=== PATIENT | male | born 1955 | race Caucasian/White ===

== ENCOUNTER → 2018-08-08 | Outpatient (CLI) | payer MEDICARE ==
[2018-08-08 12:32] LABS: HCT 44.8 % (39.0-53.0); HGB 14.3 gm/dL (13.0-17.5); MCH 30.9 pg (25.0-35.0); MCHC 31.9 g/dL (31.0-37.0); MCV 96.9 fL (80.0-100.0); Mean Platelet Volume 6.1; Platelet Count 246 k/uL (150-450); RBC 4.62 m/uL (4.30-5.90)
[2018-08-08 14:52] LABS: Appearance,Urine Clear (Clear); Bilirubin,Urine Negative (Negative); Blood,Urine Negative (Negative); Color,Urine Light Yellow; Glucose,Urine (UA) Negative (Negative); Ketones,Urine Negative (Negative); Leukocyte Esterase,Urine Negative (Negative); Nitrite,Urine Negative (Negative); PH, Urine 5.5 (5.0-8.0); Protein,Urine Negative (Negative); Specific Gravity,Urine 1.009 (1.001-1.035); Urobilinogen,Urine <2.0 mg/dL (<2.0)
[2018-08-08 18:28] LABS: Albumin 4.4 g/dL (3.80-4.90); Albumin/Globulin Ratio 1.91 (1.20-2.10); Anion Gap 10.2 mmol/L (4.00-12.00); Calcium 9.5 mg/dL (8.7-10.3); Carbon Dioxide 28.8 mmol/L (21.6-31.8); Globulin 2.3 g/dL (1.6-3.3); LDL Cholesterol,Calculated 51.4 mg/dL (0.0-131.0); Potassium 4.4 mmol/L (3.5-5.5); Total Bilirubin 0.7 mg/dL (0.3-1.2); Total Protein 6.7 g/dL (6.2-8.2); VLDL Calculation 10.6 mg/dL (5.00-40.00)
[2018-08-08 19:19] LABS: Hemoglobin A1C 5.1 % (4.0-6.0)
== END ==
LOC: LABWHC1 12:04
PROVIDERS: ATTEND Family Medicine
DX: Z00.00 Encounter for general adult medical examination without abnormal findings (principal); I10 Essential (primary) hypertension
CPT/HCPCS: 36415; 80053; 80061; 81003; 83036; 84153; 84439; 84443; 85027

== ENCOUNTER → 2018-09-06 | Outpatient (CLI) | payer MEDICARE ==
--- NOTE | 2018-09-06 13:27 | XR ---
Abdomen HISTORY: Nausea, R 10.9 Frontal view of the abdomen submitted on 2 images No comparisons There is a spinal curvature, degenerative disc changes in the visualized spine. Lung bases are clear. No evident bowel obstruction or pneumoperitoneum. No pathologic calcification. Retained fecal debris throughout the distribution of much: Is noted. IMPRESSION: Scoliosis, degenerative disc disease. Correlate for possible fecal stasis.
== END | disposition home or self-care (01) ==
LOC: RADXRMAIN 12:52
PROVIDERS: ATTEND Family Medicine
DX: R10.9 Unspecified abdominal pain (principal)
CPT/HCPCS: 74018

== ENCOUNTER 2018-11-03 07:28 | Day surgery (SDC) | payer MEDICARE ==
[2018-10-30 13:39] VITALS: BMI 26.6
[~2018-11-03 07:28] MED LIST: LACTATED RINGERS 1,000 ML IV SCH; LIDOCAINE 1% 20 ML VIAL (10MG/ML) FOR IV START INTRADERMA PRN
[2018-11-03 07:43] VITALS: TEMP 97.8
[2018-11-03] MEDS ORDERED: PROPOFOL 10 MG/ML 20 ML VIAL IV ONE (08:31)
[2018-11-03] MEDS ORDERED: LIDOCAINE 1% INJ 10MG/ML (20 ML MDV) ONE (08:31)
--- NOTE | 2018-11-03 08:42 | P.PCN ---
Date of Procedure: 11/03/18 Procedure(s) Performed: BRIEF HISTORY: Patient is a 63-year-old, pleasant, white male, scheduled for an upper endoscopy as part of evaluation of intermittent episodes of epigastric pain with nausea that happened once or twice a year. The symptoms lasted for review to and resolved. In between episodes disease symptomatically. He. White count and Prilosec with no help. His and scheduled for an upper endoscopy to evaluate further. PROCEDURE PERFORMED: Esophagogastroduodenoscopy with biopsy. PREOPERATIVE DIAGNOSIS: Intermittent episodes of epigastric pain of several years duration. IV sedation per anesthesia. PROCEDURE: After informed consent was obtained, the patient was brought into the endoscopy unit. IV sedation was administered by Anesthesia under continuous monitoring. Initially the Olympus GIF-140 video endoscope was inserted into the mouth. Esophagus intubated without any difficulty. It was gradually advanced into the stomach and duodenum and carefully examined. The bulb and the second part of the duodenum appeared normal. Abscess were done from the duodenum to rule out celiac disease. The scope at this time was withdrawn to the stomach, adequately insufflated with air, and upon careful examination, mucosa of the antrum, body had diffuse gastritis with linear erosions consistent with erosive gastritis and biopsies were done from this area. The, cardia and the fundus appeared normal. The scope was then withdrawn into the esophagus. The GE junction was located at 39 cm from the incisors. Small sliding Hiatal hernia noted. The esophagus appeared normal. There were no erosions or ulcerations seen, biopsies were done from the distal esophagus and the patient tolerated the procedure well. IMPRESSION: 1. Small sliding Hiatal hernia. No evidence of esophagitis 2. Diffuse erosive gastritis with linear erosions in the distal body as well as antrum of the stomach status post biopsies. RECOMMENDATIONS: The findings of this examination were discussed with the patient as well as his family. He was advised to follow with the biopsy results. He was also advised to start on Prilosec 20 mg daily and daily for 8 weeks..
[2018-11-03 09:09] VITALS: BP 158/89; PULSE 83; RESP 18
== END 2018-11-03 09:27 | disposition home or self-care (01) ==
LOC: ORWHC2ENDO 07:28
PROVIDERS: ATTEND Internal Medicine Gastroenterology
DX: K29.60 Other gastritis without bleeding (principal); K44.9 Diaphragmatic hernia without obstruction or gangrene; F41.9 Anxiety disorder, unspecified; I10 Essential (primary) hypertension; Z79.899 Other long term (current) drug therapy
CPT/HCPCS: 88305; 43239; J2001; J2704

== ENCOUNTER → 2018-11-15 | Outpatient (CLI) | payer MEDICARE ==
--- NOTE | 2018-11-15 09:40 | NM ---
Nuclear medicine hepatobiliary scan. HISTORY: Pain. DOSAGE: The patient received 8 ounces of ensure plus and 4.9 mCi of Technetium 99m Choletec. FINDINGS: There is normal hepatic extraction. The gallbladder is seen by 25 minutes. There is bilia ry to bowel clearance by 60 minutes. Ejection fraction is 79%. IMPRESSION: 1. Normal filling of radiotracer within the gallbladder. 2. Ejection fraction 79%.
== END | disposition home or self-care (01) ==
LOC: RADNMMAIN 06:54
PROVIDERS: ATTEND Family Medicine
DX: R10.11 Right upper quadrant pain (principal); R11.0 Nausea
CPT/HCPCS: 78226; A9537

== ENCOUNTER 2019-05-01 12:13 | Emergency (ER) | payer MEDICARE ==
[2019-05-01] MEDS ORDERED: ONDANSETRON 4 MG/2 ML VIAL IVP STA (13:50)
[2019-05-01] MEDS ORDERED: SODIUM CHLORIDE 0.9% 1,000 ML IV STA (13:50)
[2019-05-01 14:10] LABS: ALT 27 U/L (21-72); AST 32 U/L (17-59); African American GFR (CKD) >90 (>60 ml/min/1.73 sqM); Albumin 4.6 g/dL (3.5-5.0); Alkaline Phosphatase 67 U/L (38-126); Amylase 52 U/L (30-110); Anion Gap 12 mmol/L; Blood Urea Nitrogen 8 mg/dL (9-20); Calcium 9.7 mg/dL (8.4-10.2); Carbon Dioxide 24 mmol/L (22-30); Chloride 103 mmol/L (98-107); Glucose 117 mg/dL (74-99); Sodium 139 mmol/L (137-145); Total Protein 7.5 g/dL (6.3-8.2)
[2019-05-01 14:12] LABS: Basophils % (A) 0 %; Eosinophils % (A) 0 %; HCT 47.7 % (39.0-53.0); HGB 15.5 gm/dL (13.0-17.5); Lymphocytes # (A) 0.6 k/uL (1.0-4.8); Lymphocytes % (A) 10 %; MCHC 32.5 g/dL (31.0-37.0); MCV 98.5 fL (80.0-100.0); Mean Platelet Volume 6.2; Monocytes # (A) 0.3 k/uL (0-1.0); Monocytes % (A) 5 %; Neutrophils % (A) 83 %; Platelet Count 238 k/uL (150-450); RBC 4.84 m/uL (4.30-5.90); RDW 13.9 % (11.5-15.5); WBC 5.9 k/uL (3.8-10.6)
[2019-05-01 14:18] LABS: Appearance,Urine Clear (Clear); Bilirubin,Urine 1+ (Negative); Blood,Urine Negative (Negative); Color,Urine Yellow; Glucose,Urine (UA) Negative (Negative); Hyaline Casts,Urine 3 /lpf (0-2); Ketones,Urine 3+ (Negative); Leukocyte Esterase,Urine Negative (Negative); Mucus,Urine Many /hpf; Nitrite,Urine Negative (Negative); PH, Urine 5.5 (5.0-8.0); Protein,Urine 1+ (Negative); Specific Gravity,Urine 1.025 (1.001-1.035); Urobilinogen,Urine <2.0 mg/dL (<2.0); WBC,Urine 1 /hpf (0-5)
--- NOTE | 2019-05-01 14:31 | ED ---
General Adult HPI - General Chief complaint: Nausea/Vomiting/Diarrhea Stated complaint: Vomiting Time Seen by Provider: 05/01/19 13:26 Source: patient Mode of arrival: ambulatory Limitations: no limitations - History of Present Illness Initial comments: Patient is a 63-year-old male with history of gastritis is presenting to the emergency department with a chief complaint of nausea and vomiting. Patient reports the symptoms began yesterday with continuous nausea and multiple episodes of nonbilious vomiting. Patient denies any abdominal pain, back pain or diarrhea at this time. Patient denies any urinary symptoms. Patient reports he had similar symptoms about 8 months ago and was evaluated by Dr. Bautista who performed an upper scope and found erosive gastritis after biopsy. Patient also had a right upper quadrant ultrasound that was unremarkable. Patient reports he takes Prilosec whenever he has a sensation of vomiting. Patient reports the last time he took it was yesterday. Patient reports he drinks several beers daily. Patient reports the last time he drank was on Tuesday prior to the onset of symptoms. - Related Data Home Medications Medication Instructions Recorded Confirmed Buprenorphine HCl/Naloxone HCl 1 film SL BID 10/30/18 05/01/19 [Buprenorphin-Naloxon 8-2 mg Sl] ALPRAZolam [Xanax] 0.5 mg PO DAILY PRN 05/01/19 05/01/19 Losartan Potassium 100 mg PO DAILY 05/01/19 05/01/19 Omeprazole 20 mg PO DAILY 05/01/19 05/01/19 Previous Rx's Medication Instructions Recorded Omeprazole [PriLOSEC] 20 mg PO AC-BRKFST #14 cap 05/01/19 Ondansetron Odt [Zofran Odt] 4 mg PO Q8HR PRN #10 tab 05/01/19 Allergies Allergy/AdvReac Type Severity Reaction Status Date / Time No Known Allergies Allergy Verified 05/01/19 14:01 Review of Systems ROS Statement: Those systems with pertinent positive or pertinent negative responses have been documented in the HPI. ROS Other: All systems not noted in ROS Statement are negative. Past Medical History Past Medical History: Hypertension Additional Past Medical History / Comment(s): HX Chronic back pain W/ PAST OPIATE USE. C/O NAUSEA, OCC VOMITING ON/OFF. History of Any Multi-Drug Resistant Organisms: None Reported Past Surgical History: No Surgical Hx Reported Additional Past Anesthesia/Blood Transfusion Reaction / Comment(s): NO PREVIOUS ANESTHESIA Past Psychological History: Anxiety Smoking Status: Never smoker Past Alcohol Use History: Daily Past Drug Use History: None Reported - Past Family History Mother Family Medical History: No Reported History General Exam Limitations: no limitations General appearance: alert, in no apparent distress Head exam: Present: atraumatic, normocephalic, normal inspection Eye exam: Present: normal appearance Pupils: Present: normal accommodation ENT exam: Present: normal exam, normal oropharynx, mucous membranes moist, TM's normal bilaterally, normal external ear exam Neck exam: Present: normal inspection, full ROM Respiratory exam: Present: normal lung sounds bilaterally Cardiovascular Exam: Present: regular rate, normal rhythm, normal heart sounds GI/Abdominal exam: Present: soft, normal bowel sounds. Absent: distended, tenderness, guarding, rebound, rigid, diminished bowel sounds Extremities exam: Present: normal inspection, full ROM Back exam: Present: normal inspection, full ROM Neurological exam: Present: alert, oriented X3 Psychiatric exam: Present: normal affect, normal mood Skin exam: Present: warm, intact, normal color Course Vital Signs 05/01/19 05/01/19 05/01/19 12:42 13:33 15:23 Temperature 98.4 F 98.1 F Pulse Rate 69 63 70 Respiratory 18 16 18 Rate Blood Pressure 161/91 149/90 142/83 O2 Sat by Pulse 98 98 99 Oximetry Medical Decision Making - Medical Decision Making Patient is a 63-year-old male with history of gastritis presenting to emergency Department with a chief complaint of nausea vomiting. Considering the patient had an upper GI scope with a biopsy was performed by a specialist and it was positive for diffuse gastritis. Physical examination is negative for any abdominal pain. Patient is also drinking several beers daily. I suspect the patient to have an acute flareup of his gastritis. Patient given Protonix and Bentyl with improvement in symptoms. Patient also given IV fluids. UA is ind icative of dehydration due to elevated ketones. CBC and CMP are unremarkable. Patient advised to continue using Prilosec which she has prescribed by the GI specialist. Patient advised to avoid drinking alcohol, ascitic drinks or foods. Patient advised to follow-up with a GI specialist. Patient discharged with Prilosec and Zofran. Strict return parameters were thoroughly discussed with patient reports understanding and agreeable. Case discussed physician. - Lab Data Result diagrams: 05/01/19 13:31 05/01/19 13:31 Lab Results 05/01/19 05/01/19 05/01/19 Range/Units 13:31 13:31 14:05 WBC 5.9 (3.8-10.6) k/uL RBC 4.84 (4.30-5.90) m/uL Hgb 15.5 (13.0-17.5) gm/dL Hct 47.7 (39.0-53.0) % MCV 98.5 (80.0-100.0) fL MCH 32.0 (25.0-35.0) pg MCHC 32.5 (31.0-37.0) g/dL RDW 13.9 (11.5-15.5) % Plt Count 238 (150-450) k/uL Neutrophils % 83 % Lymphocytes % 10 % Monocytes % 5 % Eosinophils % 0 % Basophils % 0 % Neutrophils # 5.0 (1.3-7.7) k/uL Lymphocytes # 0.6 L (1.0-4.8) k/uL Monocytes # 0.3 (0-1.0) k/uL Eosinophils # 0.0 (0-0.7) k/uL Basophils # 0.0 (0-0.2) k/uL Sodium 139 (137-145) mmol/L Potassium 4.0 (3.5-5.1) mmol/L Chloride 103 (98-107) mmol/L Carbon Dioxide 24 (22-30) mmol/L Anion Gap 12 mmol/L BUN 8 L (9-20) mg/dL Creatinine 0.77 (0.66-1.25) mg/dL Est GFR (CKD-EPI)AfAm >90 (>60 ml/min/1.73 sqM) Est GFR (CKD-EPI)NonAf >90 (>60 ml/min/1.73 sqM) Glucose 117 H (74-99) mg/dL Calcium 9.7 (8.4-10.2) mg/dL Total Bilirubin 1.0 (0.2-1.3) mg/dL AST 32 (17-59) U/L ALT 27 (21-72) U/L Alkaline Phosphatase 67 (38-126) U/L Total Protein 7.5 (6.3-8.2) g/dL Albumin 4.6 (3.5-5.0) g/dL Amylase 52 (30-110) U/L Lipase 80 (23-300) U/L Urine Color Yellow Urine Appearance Clear (Clear) Urine pH 5.5 (5.0-8.0) Ur Specific [place] 1.025 (1.001-1.035) Urine Protein 1+ H (Negative) Urine Glucose (UA) Negative (Negative) Urine Ketones 3+ H (Negative) Urine Blood Negative (Negative) Urine Nitrite Negative (Negative) Urine Bilirubin 1+ H (Negative) Urine Urobilinogen <2.0 (<2.0) mg/dL Ur Leukocyte Esterase Negative (Negative) Urine WBC 1 (0-5) /hpf Hyaline Casts 3 H (0-2) /lpf Urine Mucus Many H (None) /hpf Disposition Clinical Impression: Nausea & vomiting Disposition: HOME SELF-CARE Condition: Stable Instructions (If sedation given, give patient instructions): Acute Nausea and Vomiting (ED) Additional Instructions: Please take prescribed medication as directed. Please follow with primary care. Avoid drinking alcohol and coffee. Drink and water. Please return to emergency department if symptoms worsen. Prescriptions: Omeprazole [PriLOSEC] 20 mg PO AC-BRKFST #14 cap Ondansetron Odt [Zofran Odt] 4 mg PO Q8HR PRN #10 tab PRN Reason: Nausea Is patient prescribed a controlled substance at d/c from ED?: No Referrals: Donna Woods MD [Primary Care Provider] - 1-2 days Time of Disposition: 14:57
[2019-05-01 15:24] VITALS: BP 142/83; PULSE 70; RESP 18; TEMP 98.1
== END 2019-05-01 15:23 | disposition home or self-care (01) ==
LOC: EC 12:13
DX: R11.2 Nausea with vomiting, unspecified (principal); E86.0 Dehydration; R82.4 Acetonuria; I10 Essential (primary) hypertension; F41.9 Anxiety disorder, unspecified; Z79.899 Other long term (current) drug therapy; Z87.898 Personal history of other specified conditions; Z87.19 Personal history of other diseases of the digestive system
CPT/HCPCS: 36415; 80053; 82150; 83690; 85025; 81001; 99284; 96374; 96361; J2405

== ENCOUNTER → 2019-08-02 | Outpatient (CLI) | payer MEDICARE ==
--- NOTE | 2019-08-02 13:22 | XR ---
EXAMINATION TYPE: XR chest 2V DATE OF EXAM: 08/02/2019 COMPARISON: NONE TECHNIQUE: PA and lateral views submitted. HISTORY: Atherosclerotic change of aorta. FINDINGS: The lungs are clear and there is no pneumothorax, pleural effusion, or focal pneumonia. No overt fa ilure. IMPRESSION: 1. No acute process.
== END | disposition home or self-care (01) ==
LOC: RADXRMAIN 13:02
PROVIDERS: ATTEND Internal Medicine
DX: R06.02 Shortness of breath (principal)
CPT/HCPCS: 71046

== ENCOUNTER → 2023-04-13 | Outpatient (CLI) | payer MEDICARE ==
--- NOTE | 2023-04-13 09:42 | US ---
EXAMINATION TYPE: US abdomen limited DATE OF EXAM: 04/13/2023 COMPARISON: NONE CLINICAL INDICATION: Male, 67 years old with history of R10.11 RIGHT UPPER QUADRANT PAIN; week long e pisodes of abd pain and dry heaving x several years, right subcostal pain TECHNIQUE: Multiple sonographic images of the right upper quadrant are obtained. FINDINGS: EXAM MEASUREMENTS: Liver Length: 11.8 cm Gallbladder Wall: 0.1 cm CBD: 0.3 cm Right Kidney: 10.0x5.5x4.5 cm RADIATOR SPECIALIST NOTES: Pancreas: Obscured by bowel gas Liver: wnl Gallbladder: wnl Evidence for sonographic Chang's sign: No CBD: wnl Right Kidney: wnl exam limited due to overlying bowel gas. GB especially difficult to visualize due to bowel. Pancreas is obscured by overlying bowel gas. Visualized portions of liver unremarkable without focal lesions identified. Common bile duct is within normal limits. Right kidney is unremarkable without ev idence of hydronephrosis, solid mass, or nephrolithiasis. Gallbladder is unremarkable without evidenc e of wall thickening, stones, or pericholecystic fluid. Per repairer recreational vehicle, negative sonographic Chang sign. IMPRESSION: Limited examination due to overlying bowel gas. No ultrasound evidence for an acute process.
== END | disposition home or self-care (01) ==
LOC: RADUSWWP 07:38
PROVIDERS: ATTEND Internal Medicine Gastroenterology
DX: R10.11 Right upper quadrant pain (principal)
CPT/HCPCS: 76705

== ENCOUNTER 2024-10-01 13:43 | Observation (INO) | payer MEDICARE ==
--- NOTE | 2024-10-01 15:04 | ED ---
General Adult HPI - General Source: patient, RN notes reviewed Mode of arrival: wheelchair Limitations: no limitations <Sneha Mcmahan - Last Filed: 10/01/24 15:21> - General Source: patient, RN notes reviewed, old records reviewed Mode of arrival: wheelchair Limitations: no limitations - History of Present Illness -: days(s) (3) Location: abdomen Radiation: non-radiation Severity scale (1-10): 3 Consistency: constant, intermittent Improves with: none Worsens with: none Associated Symptoms: denies other symptoms <Maverick Noe - Last Filed: 10/08/24 16:13> - General Chief complaint: Nausea/Vomiting/Diarrhea Stated complaint: abd pain Time Seen by Provider: 10/01/24 14:00 - History of Present Illness Initial comments: Quick [id number] male presenting to emergency department for chief complaint of nausea and vomiting over the past few days. Patient states that he experiences epigastric abdominal pain prior to episodes of emesis. Endorses fevers and chills. Denies previous surgical abdominal history. States that emesis has been green-colored. Denies hememesis (Sneha Mcmahan) This is a 69-year-old male to the ER for nausea vomiting going on for a few days now unable to keep anything down no abdominal pain currently prior history of upper GI lower GI showing severe gastritis and ulcer. Patient also has ER visits for cyclic vomiting in the past and this does appear to be similar symptoms (Maverick Noe) - Related Data Home Medications Medication Instructions Recorded Confirmed Losartan Potassium 100 mg PO DAILY 05/01/19 10/01/24 Omeprazole 40 mg PO DAILY PRN 09/07/22 10/01/24 Amitriptyline HCl [Elavil] 50 mg PO HS 10/01/24 10/01/24 Buprenorphine/Naloxone 8Mg/2Mg 1 film SL DAILY 10/01/24 10/01/24 [Suboxone 8-2Mg Film] Cyclobenzaprine [Flexeril] 10 mg PO TID PRN 10/01/24 10/01/24 Allergies Allergy/AdvReac Type Severity Reaction Status Date / Time No Known Allergies Allergy Verified 10/01/24 19:34 Review of Systems ROS Other: All systems not noted in ROS Statement are negative. <Sneha Mcmahan - Last Filed: 10/01/24 15:21> ROS Other: All systems not noted in ROS Statement are negative. <Maverick Noe - Last Filed: 10/08/24 16:13> ROS Statement: Those systems with pertinent positive or pertinent negative responses have been documented in the HPI. Past Medical History Past Medical History: GERD/Reflux, Hypertension Additional Past Medical History / Comment(s): HX Chronic back pain W/ PAST OPIATE USE. C/O NAUSEA, OCC VOMITING ON/OFF. History of Any Multi-Drug Resistant Organisms: None Reported Past Surgical History: No Surgical Hx Reported Additional Past Anesthesia/Blood Transfusion Reaction / Comment(s): NO PREVIOUS ANESTHESIA Past Psychological History: Anxiety Smoking Status: Former smoker Past Alcohol Use History: Daily Past Drug Use History: None Reported - Past Family History Mother Family Medical History: No Reported History <Sneha Mcmahan - Last Filed: 10/01/24 15:21> General Exam Limitations: no limitations <Sneha Mcmahan - Last Filed: 10/01/24 15:21> General appearance: alert, in no apparent distress Head exam: Present: atraumatic, normocephalic, normal inspection Eye exam: Present: normal appearance, PERRL, EOMI. Absent: scleral icterus, conjunctival injection, periorbital swelling ENT exam: Present: normal exam, mucous membranes moist Neck exam: Present: normal inspection. Absent: tenderness, meningismus, lymphadenopathy Respiratory exam: Present: normal lung sounds bilaterally. Absent: respiratory distress, wheezes, rales, rhonchi, stridor Cardiovascular Exam: Present: regular rate, normal rhythm, normal heart sounds. Absent: systolic murmur, diastolic murmur, rubs, gallop, clicks GI/Abdominal exam: Present: soft, normal bowel sounds. Absent: distended, tenderness, guarding, rebound, rigid Extremities exam: Present: normal inspection, full ROM, normal capillary refill. Absent: tenderness, pedal edema, joint swelling, calf tenderness Back exam: Present: normal inspection Neurological exam: Present: alert, oriented X3, CN II-XII intact Psychiatric exam: Present: normal affect, normal mood Skin exam: Present: warm, dry, intact, normal color. Absent: rash <Maverick Noe - Last Filed: 10/08/24 16:13> - General Exam Comments Initial Comments: Visual Physical Exam Vital signs reviewed General: Well-appearing, nontoxic, no acute distress. Head: Normocephalic, atraumatic Eyes: PERRLA, EOMI ENT: Airway patent Chest: Nonlabored breathing Skin: No visual rash, normal skin tone Neuro: Alert and oriented 3 Musculoskeletal: No gross abnormalities (Stieler,Sneha) Course <Maverick Noe - Last Filed: 10/08/24 16:13> Vital Signs 10/01/24 10/01/24 10/02/24 14:19 19:32 00:00 Temperature 98.1 F 99.5 F Pulse Rate 109 H 74 90 Pulse Rate [ Pulse Oximetery ] Respiratory 20 18 18 Rate Blood Pressure 141/83 143/74 110/76 Blood Pressure [Left Arm] Blood Pressure [Right Arm] O2 Sat by Pulse 98 100 97 Oximetry 10/02/24 10/02/24 10/02/24 06:00 07:00 12:15 Temperature 98.2 F 98.3 F Pulse Rate 63 Pulse Rate [ 70 79 Pulse Oximetery ] Respiratory 17 18 16 Rate Blood Pressure 137/78 Blood Pressure 145/83 [Left Arm] Blood Pressure 131/88 [Right Arm] O2 Sat by Pulse 98 97 97 Oximetry - Reevaluation(s) Reevaluation #1: 10/01/24 19:18 Medical records reviewed Multiple ER visits for similar symptoms, states symptoms are worse in past events (Maverick Noe) Reevaluation #2: 10/01/24 19:18 Patient still having active vomiting here in the ER (Maverick Noe) Reevaluation #3: 10/01/24 19:19 Patient informed of results questions answered (Maverick Noe) Reevaluation #4: Was pt. sent in by a medical professional or institution (, PA, CLEANING CUSTODIAN, urgent care, hospital, or intermediate...) When possible be specific @ -no Did you speak to anyone other than the patient for history (EMS, parent, family, police, friend...)? What history was obtained from this source @ -no Did you review nursing and triage notes (agree or disagree)? Why? @ -agree Are old charts reviewed (outside hosp., previous admission, EMS record, old EKG, old radiological studies, urgent care reports/EKG's, intermediate records)? Report findings @ -yes Differential Diagnosis (chest pain, altered mental status, abdominal pain women, abdominal pain men, vaginal bleeding, weakness, fever, dyspnea, syncope, headache, dizziness, GI bleed, back pain, seizure, CVA, palpatations, mental health, musculoskeletal)? @ -prior EKG interpreted by me (3pts min.). @ -yes X-rays interpreted by me (1pt min.). @ -no CT interpreted by me (1pt min.). @ -no U/S interpreted by me (1pt. min.). @ -no What testing was considered but not performed or refused? (CT, X-rays, U/S, labs)? Why? @ -none What meds were considered but not given or refused? Why? @ -none Did you discuss the management of the patient with other professionals (professionals i.e. , PA, CLEANING CUSTODIAN, lab, RT, psych nurse, secondary social studies teacher, operations asst, teacher, chief analytics officer, child welfare caseworker)? Give summary @ -no Was smoking cessation discussed for >3mins.? @ -no Was critical care preformed (if so, how long)? @ -no Were there social determinants of health that impacted care today? How? (Homelessness, low income, unemployed, alcoholism, drug addiction, transportation, low edu. Level, literacy, decrease access to med. care, fci, rehab)? @ -none Was there de-escalation of care discussed even if they declined (Discuss DNR or withdrawal of care, Hospice)? DNR status @ -no What co-morbidities impacted this encounter? (DM, HTN, Smoking, COPD, CAD, Cancer, CVA, ARF, Chemo, Hep., AIDS, mental health diagnosis, sleep apnea, morbid obesity)? @ -none Was patient admitted / discharged? Hospital course, mention meds given and route, prescriptions, significant lab abnormalities, going to OR and other pertinent info. @ - 69 male to ER for evaluation of severe nausea vomiting. Patient has significant anion gap metabolic acidosis from dehydration severe as well, patient will admit for further evaluation and management, symptom management still vomiting here in the ER Admitted Undiagnosed new problem with uncertain prognosis? @ -no Drug Therapy requiring intensive monitoring for toxicity (Heparin, Nitro, Insulin, Cardizem)? @ -no Were any procedures done? @ -no Diagnosis/symptom? @ -Nausea vomiting with dehydration Acute, or Chronic, or Acute on Chronic? @ -Acute Uncomplicated (without systemic symptoms) or Complicated (systemic symptoms)? @ -Complicated Side effects of treatment? @ -no Exacerbation, Progression, or Severe Exacerbation? @ -exacerbation Poses a threat to life or bodily function? How? (Chest pain, USA, MA, pneumonia, PE, COPD, DKA, ARF, appy, cholecystitis, CVA, Diverticulitis, Homicidal, Suicida l, threat to staff... and all critical care pts) @ -yes extremes of age (Maverick Noe) - Consultations Consultation #1: Spoke with Dr. Livingston agrees to admit this patient (Maverick Noe) EKG Findings - EKG Comments: EKG Findings:: EG sinus tachycardia 107 [place] 127 QRS 90 QTc 410 - EKG Results: EKG: interpreted by ERMD <Maverick Noe - Last Filed: 10/08/24 16:13> Medical Decision Making <Sneha Mcmahan - Last Filed: 10/01/24 15:21> - Lab Data Result diagrams: 10/02/24 06:35 10/02/24 06:35 <Maverick Noe - Last Filed: 10/08/24 16:13> - Medical Decision Making I completed the quick note portion of this chart signed Sneha Mcmahan PA-C (Sneha Mcmahan) 69 male to ER for evaluation of severe nausea vomiting. Patient has significant anion gap metabolic acidosis from dehydration severe as well, patient will admit for further evaluation and management, symptom management still vomiting here in the ER (Maverick Noe) - Lab Data Lab Results 10/01/24 10/01/24 10/01/24 Range/Units 16:00 16:00 16:00 WBC 10.0 (3.8-10.6) k/uL RBC 5.41 (4.30-5.90) m/uL Hgb 15.9 (13.0-17.5) gm/dL Hct 49.7 (39.0-53.0) % MCV 91.8 (80.0-100.0) fL MCH 29.4 (25.0-35.0) pg MCHC 32.0 (31.0-37.0) g/dL RDW 14.0 (11.5-15.5) % Plt Count 372 (150-450) k/uL MPV 7.8 Neutrophils % 86 % Lymphocytes % 8 % Monocytes % 4 % Eosinophils % 1 % Basophils % 0 % Neutrophils # 8.5 H (1.3-7.7) k/uL Lymphocytes # 0.8 L (1.0-4.8) k/uL Monocytes # 0.4 (0-1.0) k/uL Eosinophils # 0.1 (0-0.7) k/uL Basophils # 0.0 (0-0.2) k/uL Sodium 138 (137-145) mmol/L Potassium 4.4 (3.5-5.1) mmol/L Chloride 101 (98-107) mmol/L Carbon Dioxide 14 L (22-30) mmol/L Anion Gap 23 mmol/L BUN 22 H (9-20) mg/dL Creatinine 0.71 (0.66-1.25) mg/dL Est GFR (CKD-EPI)AfAm >90 (>60 ml/min/1.73 sqM) Est GFR (CKD-EPI)NonAf >90 (>60 ml/min/1.73 sqM) Glucose 101 H (74-99) mg/dL Plasma Lactic Acid Reinaldo 1.6 (0.7-2.0) mmol/L Calcium 10.6 H (8.4-10.2) mg/dL Phosphorus (2.5-4.5) mg/dL Magnesium (1.6-2.3) mg/dL Total Bilirubin 1.4 H (0.2-1.3) mg/dL AST 22 (17-59) U/L ALT 17 (4-49) U/L Alkaline Phosphatase 86 (38-126) U/L Troponin I (0.000-0.034) ng/mL Total Protein 8.9 H (6.3-8.2) g/dL Albumin 5.5 H (3.5-5.0) g/dL Amylase 57 (30-110) U/L Lipase 36 (23-300) U/L Urine Color Urine Appearance (Clear) Urine pH (5.0-8.0) Ur Specific [place] (1.001-1.035) Urine Protein (Negative) Urine Glucose (UA) (Negative) Urine Ketones (Negative) Urine Blood (Negative) Urine Nitrite (Negative) Urine Bilirubin (Negative) Urine Urobilinogen (<2.0) mg/dL Ur Leukocyte Esterase (Negative) Urine RBC (0-5) /hpf Urine WBC (0-5) /hpf Urine Mucus (None) /hpf Salicylates mg/dL Acetaminophen ug/mL Serum Alcohol mg/dL Acetone, Qual (Negative) 10/01/24 10/01/24 10/01/24 Range/Units 16:00 16:05 17:47 WBC (3.8-10.6) k/uL RBC (4.30-5.90) m/uL Hgb (13.0-17.5) gm/dL Hct (39.0-53.0) % MCV (80.0-100.0) fL MCH (25.0-35.0) pg MCHC (31.0-37.0) g/dL RDW (11.5-15.5) % Plt Count (150-450) k/uL MPV Neutrophils % % Lymphocytes % % Monocytes % % Eosinophils % % Basophils % % Neutrophils # (1.3-7.7) k/uL Lymphocytes # (1.0-4.8) k/uL Monocytes # (0-1.0) k/uL Eosinophils # (0-0.7) k/uL Basophils # (0-0.2) k/uL Sodium (137-145) mmol/L Potassium (3.5-5.1) mmol/L Chloride (98-107) mmol/L Carbon Dioxide (22-30) mmol/L Anion Gap mmol/L BUN (9-20) mg/dL Creatinine (0.66-1.25) mg/dL Est GFR (CKD-EPI)AfAm (>60 ml/min/1.73 sqM) Est GFR (CKD-EPI)NonAf (>60 ml/min/1.73 sqM) Glucose (74-99) mg/dL Plasma Lactic Acid Reinaldo (0.7-2.0) mmol/L Calcium (8.4-10.2) mg/dL Phosphorus 4.5 (2.5-4.5) mg/dL Magnesium 1.8 (1.6-2.3) mg/dL Total Bilirubin (0.2-1.3) mg/dL AST (17-59) U/L ALT (4-49) U/L Alkaline Phosphatase (38-126) U/L Troponin I <0.012 (0.000-0.034) ng/mL Total Protein (6.3-8.2) g/dL Albumin (3.5-5.0) g/dL Amylase (30-110) U/L Lipase (23-300) U/L Urine Color Yellow Urine Appearance Clear (Clear) Urine pH 6.0 (5.0-8.0) Ur Specific [place] 1.026 (1.001-1.035) Urine Protein 1+ H (Negative) Urine Glucose (UA) Negative (Negative) Urine Ketones 4+ H (Negative) Urine Blood Small H (Negative) Urine Nitrite Negative (Negative) Urine Bilirubin Negative (Negative) Urine Urobilinogen 2.0 (<2.0) mg/dL Ur Leukocyte Esterase Negative (Negative) Urine RBC 4 (0-5) /hpf Urine WBC 4 (0-5) /hpf Urine Mucus Rare H (None) /hpf Salicylates <1.0 mg/dL Acetaminophen <10.0 ug/mL Serum Alcohol <10 mg/dL Acetone, Qual Positive (Negative) Disposition <Sneha Mcmahan - Last Filed: 10/01/24 15:21> Time of Disposition: 19:00 <Maverick Noe - Last Filed: 10/08/24 16:13> Clinical Impression: Dehydration, Gastroenteritis, Nausea & vomiting Disposition: ADMITTED IP TO THIS HOSP Condition: Fair
[2024-10-01 16:20] LABS: Basophils % (A) 0 %; Eosinophils # (A) 0.1 k/uL (0-0.7); Eosinophils % (A) 1 %; HCT 49.7 % (39.0-53.0); HGB 15.9 gm/dL (13.0-17.5); Lymphocytes # (A) 0.8 k/uL (1.0-4.8); Lymphocytes % (A) 8 %; MCH 29.4 pg (25.0-35.0); MCV 91.8 fL (80.0-100.0); Mean Platelet Volume 7.8; Monocytes # (A) 0.4 k/uL (0-1.0); Monocytes % (A) 4 %; Neutrophils # (A) 8.5 k/uL (1.3-7.7); Neutrophils % (A) 86 %; Platelet Count 372 k/uL (150-450); RBC 5.41 m/uL (4.30-5.90)
[2024-10-01 16:30] LABS: Appearance,Urine Clear (Clear); Bilirubin,Urine Negative (Negative); Blood,Urine Small (Negative); Color,Urine Yellow; Glucose,Urine (UA) Negative (Negative); Ketones,Urine 4+ (Negative); Leukocyte Esterase,Urine Negative (Negative); Mucus,Urine Rare /hpf; Nitrite,Urine Negative (Negative); Protein,Urine 1+ (Negative); RBC,Urine 4 /hpf (0-5); Specific Gravity,Urine 1.026 (1.001-1.035); WBC,Urine 4 /hpf (0-5)
[2024-10-01 16:41] LABS: ALT 17 U/L (4-49); AST 22 U/L (17-59); African American GFR (CKD) >90 (>60 ml/min/1.73 sqM); Albumin 5.5 g/dL (3.5-5.0); Alkaline Phosphatase 86 U/L (38-126); Amylase 57 U/L (30-110); Anion Gap 23 mmol/L; Blood Urea Nitrogen 22 mg/dL (9-20); Calcium 10.6 mg/dL (8.4-10.2); Carbon Dioxide 14 mmol/L (22-30); Chloride 101 mmol/L (98-107); Glucose 101 mg/dL (74-99); Lipase 36 U/L (23-300); Non-African American GFR(CKD) >90 (>60 ml/min/1.73 sqM); Potassium 4.4 mmol/L (3.5-5.1); Sodium 138 mmol/L (137-145); Total Bilirubin 1.4 mg/dL (0.2-1.3); Total Protein 8.9 g/dL (6.3-8.2)
[2024-10-01] MEDS: SODIUM CHLORIDE 0.9% 1,000 ML IV SCH (18:06)
[2024-10-01] MEDS: PANTOPRAZOLE 40 MG/10 ML VIAL IVP STA (18:10)
[2024-10-01] MEDS: ONDANSETRON 4 MG/2 ML VIAL IVP STA (18:10)
[2024-10-01 18:17] LABS: Acetaminophen <10.0 ug/mL; Alcohol <10 mg/dL; Magnesium 1.8 mg/dL (1.6-2.3); Phosphorus 4.5 mg/dL (2.5-4.5); Salicylate <1.0 mg/dL
[2024-10-01] MEDS ORDERED: NALOXONE 0.4 MG/ML 1 ML VIAL IV PRN (19:16)
[2024-10-01] MEDS ORDERED: MORPHINE SULFATE 4 MG/ML SYRINGE IV PRN (19:16)
[2024-10-02] MEDS: PANTOPRAZOLE 40 MG/10 ML VIAL IV SCH (08:28)
[2024-10-02 10:18] LABS: Basophils # (A) 0.05 X 10*3/uL (0.00-0.10); Basophils % (A) 0.6 %; Eosinophils # (A) 0 X 10*3/uL (0.04-0.35); Eosinophils % (A) 0 %; HCT 43.1 % (39.6-50.0); HGB 14.1 g/dL (13.0-17.0); Lymphocytes # (A) 1.19 X 10*3/uL (0.90-5.00); Lymphocytes % (A) 13.2 %; MCH 29.9 pg (27.0-32.0); MCHC 32.7 g/dL (32.0-37.0); MCV 91.3 FL (80.0-97.0); Mean Platelet Volume 10.6 FL (9.5-12.2); Monocytes # (A) 0.83 X 10*3/uL (0.20-1.00); Monocytes % (A) 9.2 %; NRBC Per 100 WBC 0 X 10*3/uL (0.00-0.01); Neutrophils # (A) 6.95 X 10*3/uL (1.80-7.70); Neutrophils % (A) 76.8 %; Platelet Count 308 X 10*3/uL (140-440); RBC 4.72 X 10*6/uL (4.40-5.60); RDW 14.1 % (11.5-14.5); WBC 9.04 X 10*3/uL (4.50-10.00)
[2024-10-02] MEDS ORDERED: NON FORMULARY DRUG (Omeprazole [Omeprazole] 40 MG Capsule.Dr) PO PRN (11:08)
[2024-10-02 18:59] LABS: BUN/Creat Ratio 24.38 Ratio (12.00-20.00); Blood Urea Nitrogen 19.5 mg/dL (9.0-27.0); Chloride 108 mmol/L (96-109); Glucose 93 mg/dL (70-110); Potassium 3.5 mmol/L (3.5-5.5); Sodium 141 mmol/L (135-145)
[2024-10-02 19:00] LABS: ALT 11 U/L (10-49); AST 17 U/L (14-35); Albumin 4.3 g/dL (3.8-4.9); Albumin/Globulin Ratio 1.87 Ratio (1.60-3.17); Alkaline Phosphatase 80 U/L (41-126); Calcium 9.6 mg/dL (8.7-10.3); Carbon Dioxide 19.5 mmol/L (21.6-31.8); Globulin 2.3 g/dL (1.6-3.3); Phosphorus 2.4 mg/dL (2.4-5.1); Total Bilirubin 0.9 mg/dL (0.3-1.2); Total Protein 6.6 g/dL (6.2-8.2)
--- NOTE | 2024-10-02 22:39 | HP ---
HISTORY AND PHYSICAL CHIEF COMPLAINT: Intractable nausea and vomiting for several days. HISTORY OF PRESENT ILLNESS: This gentleman presented to the emergency room after several days of nausea, vomiting, diarrhea. He had no hematemesis, melena, hematochezia, etc. He has had no significant abdominal pain. He has had no fever or chills. REVIEW OF SYSTEMS: He has had no other complaints. Past medical history, family history, personal and social histories reveal that he is allergic to Augmentin. MEDICATIONS: He normally takes, 1. Omeprazole. 2. Flexeril. 3. Trelegy. 4. Albuterol. 5. Losartan. 6. Buprenorphine. He does not smoke. PHYSICAL EXAMINATION: VITAL SIGNS: Blood pressure is 110/65 with a pulse of 96, respirations were 32. GENERAL: He appeared to be dehydrated. He is awake and alert. SKIN: Color was normal. Skin was dry. HEAD, EARS, EYES, NOSE, MOUTH, AND THROAT: Normal except for dry mucous membranes. CHEST: Clear. CARDIAC: Normal. ABDOMEN: Soft and nontender. EXTREMITIES: Normal. NEUROLOGICAL: He is intact. ASSESSMENT: He is admitted to the hospital with diagnoses of, 1. Dehydration. 2. Intractable nausea and vomiting. 3. Gastroenteritis. PLAN: 1. Bed rest. 2. IV fluids. 3. Clear liquids. 4. Monitor electrolytes. MMODL / IJN: [id number] /
--- NOTE | 2024-10-03 00:31 | PN ---
PROGRESS NOTE DATE OF SERVICE: 10/02/2024 CHIEF COMPLAINT: Viral gastroenteritis with intractable nausea, vomiting, and diarrhea. HISTORY OF PRESENT ILLNESS: This gentleman is finally doing a bit better. He feels a little bit less nauseated. He has had no fever, chills, abdominal pain, etc. PHYSICAL EXAMINATION: CHEST: Clear. CARDIAC: Normal. ABDOMEN: Soft, nontender. IMPRESSION: 1. Viral gastroenteritis. 2. Intractable nausea, vomiting, and diarrhea. 3. Dehydration. PLAN: Continue with IV fluids, antidiarrheals, and antiemetics. MMODL / OLEKSANDRN: [id number] /
[2024-10-03] MEDS: NON FORMULARY DRUG (Buprenorphine/Naloxone 8mg/2mg 1 EACH Film) SUBLINGUAL SCH (08:45)
[2024-10-03] MEDS: ONDANSETRON 4 MG/2 ML VIAL IVP PRN (20:33)
--- NOTE | 2024-10-03 23:03 | PN ---
PROGRESS NOTE DATE OF SERVICE: 10/03/2024 CHIEF COMPLAINT: Viral gastroenteritis with nausea, vomiting, diarrhea, and weakness. HISTORY OF PRESENT ILLNESS: This gentleman still remains very weak. He has not been throwing up. He still has a loose stool. He is trying to advance his diet and is on clear liquids. PHYSICAL EXAMINATION: CHEST: Clear. CARDIAC: Normal. ABDOMEN: Soft, nontender. IMPRESSION: Viral gastroenteritis with dehydration and intractable vomiting. PLAN: Slowly increase activity and diet. MMODL / IJN: [id number] /
[2024-10-04 08:34] VITALS: BP 163/87; PULSE 71; RESP 17; TEMP 97.6
--- NOTE | 2024-10-04 20:51 | DS ---
DISCHARGE SUMMARY CHIEF COMPLAINT: Intractable nausea, vomiting, and diarrhea with weakness. HISTORY OF PRESENT ILLNESS AND PHYSICAL EXAMINATION: Details of this man's history and physical can be found in the initial workup. LABORATORY STUDIES: While he is in the hospital, he had laboratory studies, details of which can be found in the laboratory section of his chart. COURSE IN THE HOSPITAL: After admission, he was placed on bedrest, started on intravenous fluids, antidiarrheals, and antiemetics. He did well. His diet was slowly advanced and his strength started to come back, and he is doing well enough that it was felt he could be discharged on the , and he will be followed up in the office in several days. FINAL DIAGNOSES: 1. Intractable nausea and vomiting with diarrhea. 2. Dehydration. 3. Viral gastroenteritis. 4. Generalized weakness. OPERATIONS: None. CONSULTATIONS: None. CONDITION: He has improved. GENOVEVA / NETTIE: [id number] /
== END 2024-10-04 11:06 | disposition home or self-care (01) ==
LOC: EC 13:43 → 6NMEDSUR 19:21
PROVIDERS: ADMIT Family Medicine; ATTEND Family Medicine
DX: A08.4 Viral intestinal infection, unspecified (principal); E86.0 Dehydration; I10 Essential (primary) hypertension; K21.9 Gastro-esophageal reflux disease without esophagitis; F41.9 Anxiety disorder, unspecified; Z87.891 Personal history of nicotine dependence; Z79.899 Other long term (current) drug therapy
CPT/HCPCS: 96376 ×3; 96374; 96375; 99285; 36415; 93005; 80053 ×2; 82150; 82009; 83605; 83690; 83735 ×2; 84100 ×2; 84484; 85025 ×2; 81001; 80143; 80320; 80179; G0378 ×4; J2405 ×2; J2470 ×3